=== PATIENT | male | born 1980 | race Caucasian/White ===

== ENCOUNTER 2016-03-10 11:27 | Emergency (ER) | payer SELFPAY ==
[~2016-03-10] VITALS: Ht 165.1 cm; Wt 77.1 kg
[~2016-03-10 11:27] MED LIST: BACTRIM DS 8001 TA1 PO; BACTRIM DS 8001 TAB PO; BENTYL10 MG PO; CITRATE OF1.75 GM/31 PO; DOXYCYCLINE HY100 M3 PO; DOXYCYCLINE HY100 M4 PO; DOXYCYCLINE100 M1 PO; DOXYCYCLINE150 MG PO; ERYTHROMYCIN1 GM/UDP OP; ETODOLAC400 MG PO; FLEXERIL10 MG PO; FLOMAX 0.4MG C0.4 MG PO; HYDROCODONE-APA1 TA1 PO; IBUPROFEN800 MG PO; IMODIUM MULTI-S1 TAB PO; LORTAB 5/500 501 TAB PO; MEDROL 4MG. DOSE4 MG PO; NOMEDS; NOMEDS XX; PERCOCET 325 MG1 TA3 PO; PHENERGAN25 M3 PO; PYRIDIUM 200MG200 MG PO; SEPTRA DS 800 M1 TAB PO; TAMIFLU 75MG CA75 MG PO; TORADOL10 M1 PO; VOLTAREN75 MG PO; ZITHROMAX Z PA250 MG PO; ZOFRAN 8MG TABLE8 MG PO; ZOFRAN4 MG PO
[2016-03-10 11:49] LABS: UTC STREP SCREEN NOT DETECTED (NOTDETECTED)
[2016-03-10] MEDS ORDERED: ZITHROMAX Z PA250 MG PO (12:01)
--- NOTE | 2016-03-10 12:01 | Urgent Treatment Center Report ---
History of Present Issue Date/Time Seen by Provider 03/10/16 1144 Visit Reason Pt arrived:Walked Presenting Problem:PT C/O BODY ACHES, COLD CHILLS, SORE THROAT, FEVER Location if Accident: Onset of symptoms date/time:/ or onset unknown for:MEDICAL HX UNKNOWN Have you (or family members/close friends) recently traveled outside the [place]? N If Yes, where/when: Have you had exposure to infectious disease within the past month? TB? Other? Specify: c/o sore throat starting last night w/ bodyaches, chills, fever around 101-102. No fever today. Tyelnol hasn't helped. Throat pain constant, entire throat, raw/burning. + nausea, no vomiting. + cough, no SOA. 2 co workers ill w/ similiar symptoms. No flu vaccine this season. Source patient Exam Limitations no limitations ALLERGIES Coded Allergies: Penicillins (09/17/15) cefaclor (From CECLOR) (09/17/15) sumatriptan (From IMITREX) (09/17/15) Home Medications Reported Medications No Home Medications (NO HOME MEDICATIONS) 1 EACH XX ONCE History Medical History General CAD? No Angina: Yes [place]: No Hypertension? No Hyperlipidemia? Yes CHF? No DVT? No PE? No COPD? No Asthma? Yes Anemia? No GERD? No Gastric ulcers? No GI Bleed? No Hernia? No Thyroid Problems? No Hypothyroidism? No CVA? No Seizures? No Diabetes? No Renal Insuffiency? No UTI? No Stones? No BPH? No GB Disease: No Nephritic Syndrome? No Asplenia? No Hepatitis? No Sickle Cell Disease? No Arthritis? No Migraines? No Cataracts? No Glaucoma? No MRSA? Yes HIV? No TB? No Anxiety? No Depression? No Cancer? No Immunization HX DT/Tetanus 5-10 Years Ago Surgical Hx Previous Surgery?Y Hernia Repair NECK MASS DISECTION Social History Smoking Hx Smoker: Current Every Day Smoker Tobacco: Yes Type Cigarettes Packs/day < 1 Pack Alcohol Alcohol: No Review of Systems All Other Systems Reviewed and Negative Constitutional see HPI, malaise Eyes denies other (itchy, watery, drainage) ENT see HPI, ear pain, nose discharge, nose congestion. denies: ear discharge. Respiratory see HPI Cardiovascular denies chest pain Gastrointestinal see HPI Skin denies rash Physical Exam Vital Signs Vital Signs Date Time Temp Pulse Resp B/P Pulse O2 O2 Flow FiO2 Ox Delivery Rate 03/10 1133 98.2 82 16 118/72 98 General Appearance no apparent distress, obviously doesn't feel well. Laying on exam table nearly asleep when ORTHOPEDIC ASSISTANT entered Eye Exam - bilateral eye normal exam Ear, Nose, Throat hearing grossly normal, nasal congestion (mild), pharyngeal erythema, no tonsillar swelling, left TM red, mild bulging, tM intact, normal EACs Neck non-tender Respiratory Status No: respiratory distress. Lung Sounds anterior: normal breath sounds. posterior: normal breath sounds. bilateral: normal breath sounds. Cardiovascular regular rate/rhythm, no murmur Gastrointestinal normal bowel sounds, non tender, soft Neurologic alert Skin warm/dry Lymphatic no adenopathy (cervical) Medical Decision Making LABS/Meds/Orders Pt receiving controlled substance in ED? No Results/Orders Laboratory Tests 03/10/16 1140: Influenza Type A Ag NOT DETECTED, Influenza Type B Ag NOT DETECTED, Group A Strep Screen NOT DETECTED 03/10/16 1136: Influenza Type A Ag Cancelled, Influenza Type B Ag Cancelled Orders Procedure Date/time Status [facility] STREP SCREEN 03/10 1140 Complete DEC FLU A,B 03/10 1140 Complete Strep negative Flu A and B negative (GOPAL PEOPLES APRN) Departure Departure Time of Disposition 1155 Disposition DC Home or Self Care(routine) Clinical Impression Primary Impression: Otitis media of left ear Qualifiers: Otitis media type: unspecified Chronicity: unspecified Qualified Code: H66.92 - Otitis media, unspecified, left ear Condition STABLE Patient Instructions DI for Otitis Media (Middle Ear Infection)-Child Additional Instructions FU Primary care or return to [facility] immediately for new or worsening symptoms. FU if no noticeable improvement over next 48-72 hours. Tylenol and/or ibuprofen as needed for pain/fever Sore throat lozenges. Gargle salt water. Discharge Counseling Counseled pt/family regarding diagnosis, test results, medications/RX, home care, follow up needs Prescriptions Current Visit Scripts Azithromycin (Zithromycin (Z-TRAY) 250MG Tab) 250 MG PO DAILY #6 TAB TAKE TWO (2) TABLETS ON DAY 1, THEN ONE (1) TABLET DAY #2 THRU #5 at 1201
--- NOTE | 2016-03-10 12:01 | Urgent Treatment Center Report ---
History of Present Issue Date/Time Seen by Provider 03/10/16 1144 Visit Reason Pt arrived:Walked Presenting Problem:PT C/O BODY ACHES, COLD CHILLS, SORE THROAT, FEVER Location if Accident: Onset of symptoms date/time:/ or onset unknown for:MEDICAL HX UNKNOWN Have you (or family members/close friends) recently traveled outside the [place]? N If Yes, where/when: Have you had exposure to infectious disease within the past month? TB? Other? Specify: c/o sore throat starting last night w/ bodyaches, chills, fever around 101-102. No fever today. Tyelnol hasn't helped. Throat pain constant, entire throat, raw/burning. + nausea, no vomiting. + cough, no SOA. 2 co workers ill w/ similiar symptoms. No flu vaccine this season. Source patient Exam Limitations no limitations ALLERGIES Coded Allergies: Penicillins (09/17/15) cefaclor (From CECLOR) (09/17/15) sumatriptan (From IMITREX) (09/17/15) Home Medications Reported Medications No Home Medications (NO HOME MEDICATIONS) 1 EACH XX ONCE History Medical History General CAD? No Angina: Yes [place]: No Hypertension? No Hyperlipidemia? Yes CHF? No DVT? No PE? No COPD? No Asthma? Yes Anemia? No GERD? No Gastric ulcers? No GI Bleed? No Hernia? No Thyroid Problems? No Hypothyroidism? No CVA? No Seizures? No Diabetes? No Renal Insuffiency? No UTI? No Stones? No BPH? No GB Disease: No Nephritic Syndrome? No Asplenia? No Hepatitis? No Sickle Cell Disease? No Arthritis? No Migraines? No Cataracts? No Glaucoma? No MRSA? Yes HIV? No TB? No Anxiety? No Depression? No Cancer? No Immunization HX DT/Tetanus 5-10 Years Ago Surgical Hx Previous Surgery?Y Hernia Repair NECK MASS DISECTION Social History Smoking Hx Smoker: Current Every Day Smoker Tobacco: Yes Type Cigarettes Packs/day < 1 Pack Alcohol Alcohol: No Review of Systems All Other Systems Reviewed and Negative Constitutional see HPI, malaise Eyes denies other (itchy, watery, drainage) ENT see HPI, ear pain, nose discharge, nose congestion. denies: ear discharge. Respiratory see HPI Cardiovascular denies chest pain Gastrointestinal see HPI Skin denies rash Physical Exam Vital Signs Vital Signs Date Time Temp Pulse Resp B/P Pulse O2 O2 Flow FiO2 Ox Delivery Rate 03/10 1133 98.2 82 16 118/72 98 General Appearance no apparent distress, obviously doesn't feel well. Laying on exam table nearly asleep when KNITTING SUPERVISOR entered Eye Exam - bilateral eye normal exam Ear, Nose, Throat hearing grossly normal, nasal congestion (mild), pharyngeal erythema, no tonsillar swelling, left TM red, mild bulging, tM intact, normal EACs Neck non-tender Respiratory Status No: respiratory distress. Lung Sounds anterior: normal breath sounds. posterior: normal breath sounds. bilateral: normal breath sounds. Cardiovascular regular rate/rhythm, no murmur Gastrointestinal normal bowel sounds, non tender, soft Neurologic alert Skin warm/dry Lymphatic no adenopathy (cervical) Medical Decision Making LABS/Meds/Orders Pt receiving controlled substance in ED? No Results/Orders Laboratory Tests 03/10/16 1140: Influenza Type A Ag NOT DETECTED, Influenza Type B Ag NOT DETECTED, Group A Strep Screen NOT DETECTED 03/10/16 1136: Influenza Type A Ag Cancelled, Influenza Type B Ag Cancelled Orders Procedure Date/time Status [facility] STREP SCREEN 03/10 1140 Complete MIC FLU A,B 03/10 1140 Complete Strep negative Flu A and B negative (GOPAL PEOPLES APRN) Departure Departure Time of Disposition 1155 Disposition DC Home or Self Care(routine) Clinical Impression Primary Impression: Otitis media of left ear Qualifiers: Otitis media type: unspecified Chronicity: unspecified Qualified Code: H66.92 - Otitis media, unspecified, left ear Condition STABLE Patient Instructions DI for Otitis Media (Middle Ear Infection)-Child Additional Instructions FU Primary care or return to [facility] immediately for new or worsening symptoms. FU if no noticeable improvement over next 48-72 hours. Tylenol and/or ibuprofen as needed for pain/fever Sore throat lozenges. Gargle salt water. Discharge Counseling Counseled pt/family regarding diagnosis, test results, medications/RX, home care, follow up needs Prescriptions Current Visit Scripts Azithromycin (Zithromycin (Z-TRAY) 250MG Tab) 250 MG PO DAILY #6 TAB TAKE TWO (2) TABLETS ON DAY 1, THEN ONE (1) TABLET DAY #2 THRU #5 at 1201
[2016-03-10 12:04] VITALS: BP 118/72
[2016-03-25] MEDS ORDERED: FLONASE 50 MCG16 GM (15:21)
== END 2016-03-10 12:05 | disposition home or self-care (01) ==
LOC: UTC 11:27 → ER 11:29 → UTC 11:29
PROVIDERS: Nurse Practitioner Family
DX: H66.92 Otitis media, unspecified, left ear (principal); Z72.0 Tobacco use